=== PATIENT | female | born 1935 | race Caucasian/White ===

== ENCOUNTER 2018-02-06 13:28 | Emergency (ER) | payer MEDICARE, BC ==
[2018-02-06 13:45] VITALS: BP 186/105
--- NOTE | 2018-02-06 14:11 | EDM.PDOC ---
ED HPI GENERAL MEDICAL PROBLEM - General Chief Complaint: Lower Extremity Injury/Pain Stated Complaint: LEFT LEG PAIN Time Seen by Provider: 02/06/18 14:11 Source of Information: Reports: Patient History Limitations: Reports: No Limitations - History of Present Illness INITIAL COMMENTS - FREE TEXT/NARRATIVE: 82-year-old female presents to the ED with 2 family members complaining of pain in her left quadriceps /femur area for the last week or more. Tylenol takes the pain away but she has difficulty walking with her walker due to pain in her quadriceps. She is a new dialysis patient starting the end of November of this year. The make and is receiving Aranesp shots a month once monthly. Receive a unit of blood last week because of a hemoglobin of estimated to be 8.3. She states the pain is deep and aching and worse with standing and walking. No recent falls or injuries. Although she did fall 2 months ago injuring her left knee. Onset: Gradual Onset Date: 01/30/18 Duration: Day(s): (Started to have pain in her left quadriceps about a week ago. ) Location: Reports: Lower Extremity, Left (In the distribution of the quadriceps musculature.) Quality: Reports: Ache, Other Severity: Moderate (Deep aching pain) Improves with: Reports: Rest Worsens with: Reports: Movement Context: Denies: Activity (Standing and walking seem to make it worse.), Exercise, Lifting, Sick Contact, Trauma Associated Symptoms: Reports: Loss of Appetite, Malaise, Shortness of Breath, Weakness. 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: Acetaminophen (Takes most of the pain out of her left leg.) Left Leg Pain Score (Numeric/FACES): 5 - Related Data Allergies Allergy/AdvReac Type Severity Reaction Status Date / Time Iodinated Contrast- Oral and Allergy Other Verified 02/06/18 13:45 IV Dye [Iodinated Contrast Media - IV Dye] Home Meds: Home Meds Ca Carb & Gluc/Mag Ox & Gluc [Calcium Magnesium Caplet] 1 each PO DAILY [History] Calcium Carb/Vit D3/Minerals [Calcium 600+D Plus Min] 600 mg PO BID 06/02/14 [ History] Cyanocobalamin (Vitamin B-12) [Vitamin B-12] 1,000 mcg PO DAILY 06/02/14 [ History] Insulin Aspart [Novolog Flexpen] 3 unit SQ ACLUNCH 06/02/14 [History] Insulin Detemir [Levemir Flexpen] 10 unit SQ QAM 06/02/14 [History] Lutein/Minerals/Vit A,C & E [I-Mari] 1 each PO DAILY 06/02/14 [History] Metoprolol Tartrate 100 mg PO BID 06/02/14 [History] Multivitamins 1 each PO DAILY 06/02/14 [History] Omeprazole [Prilosec] 20 mg PO DAILY 06/02/14 [History] Acetaminophen [Tylenol] 650 mg PO BEDTIME 07/30/14 [History] DULoxetine [Cymbalta] 30 mg PO DAILY 09/10/14 [History] Insulin Aspart [Novolog Flexpen] 4 unit SQ ACBREAKFAST 09/10/14 [History] Nystatin 1 each TOP TID PRN 09/10/14 [History] Insulin Aspart [NovoLOG] See Protocol WITHMEALSANDBED 02/14/15 [History] Insulin Aspart [Novolog Flexpen] 2 unit SQ ACDINNER 02/14/15 [History] Warfarin [Coumadin] 2.5 mg PO ASDIRECTED 03/01/15 [History] Darbepoetin Fam [Aranesp] 1 injection SUBCUT ASDIRECTED 09/09/15 [History] Denosumab [Prolia] 60 mg SUBCUT ASDIRECTED 09/09/15 [History] Levothyroxine [Synthroid] 100 mcg PO DAILY 09/09/15 [History] Loratadine [Claritin] 10 mg PO DAILY 09/09/15 [History] Menthol/Zinc Oxide [Dermaseptin Ointment] 1 applic TOP BID 09/09/15 [History] Metolazone 5 mg PO DAILY PRN 09/09/15 [History] Potassium Chloride [Klor-Con 10] 10 meq PO DAILY 09/09/15 [History] Torsemide [Demadex] 60 mg PO BID 09/09/15 [History] Ondansetron [Zofran] 4 mg IVPUSH Q3HR PRN #0 vial 09/18/15 [Rx] Magnesium Chloride [Slow-Mag] 71.5 mg PO BID #60 tablet. 02/06/18 [Rx] Past Medical History Other Respiratory History: cpap machine @ home Genitourinary History: Reports: Chronic Renal Insuffiency (Currently on dialysis due to renal failure precipitated by contrast media and atherosclerosis and diabetes.), Diabetic Nephropathy Endocrine/Metabolic History: Reports: Diabetes, Type II (On insulin for control. ) - Past Surgical History Other Musculoskeletal Surgeries/Procedures:: Back Social & Family History - Tobacco Use Smoking Status *Q: Never Smoker Second Hand Smoke Exposure: No - Alcohol Use Days Per Week of Alcohol Use: 0 - Recreational Drug Use Recreational Drug Use: No - Living Situation & Occupation Living situation: Reports: , with Family Occupation: Retired Review of Systems - Review of Systems Review Of Systems: See Below Constitutional: Denies: Chills, Diaphoresis, Fever, Weakness, Other Eyes: Reports: Blurred Vision, Decreased Acuity. Denies: No Symptoms, Blindness , Drainage, Foreign Body Sensation Nose: Reports: No Symptoms Mouth/Throat: Reports: No Symptoms Respiratory: Reports: Shortness of Breath Cardiovascular: Denies: No Symptoms, Chest Pain GI/Abdominal: Reports: No Symptoms Genitourinary: Reports: Other (Still makes a half a cup of urine or better daily.) Musculoskeletal: Reports: Back Pain, Joint Pain (Knees and hips and neck at times) Skin: Reports: Bruising (Bruises extremely easily.) Neurological: Reports: No Symptoms Psychiatric: Reports: No Symptoms ED EXAM, GENERAL - Physical Exam Exam: See Below Exam Limited By: No Limitations General Appearance: Alert, WD/WN, No Apparent Distress, Other (Appears quite frail.) Eye Exam: Bilateral Eye: Other (Both lower conjunctiva are very pallid.) Neck: Normal Inspection, Supple, Non-Tender, Full Range of Motion. No: Lymphadenopathy (L), Lymphadenopathy (R) Respiratory/Chest: No Respiratory Distress, Lungs Clear, No Accessory Muscle Use , Respiratory Distress, Decreased Breath Sounds, Other (Decreased breath sounds the lower 40% of lung foster bilaterally. Moderate kyphosis thoracic spine) Cardiovascular: Regular Rate, Rhythm, No Edema, No Gallop. No: Normal Peripheral Pulses Peripheral Pulses: 1+: Posterior Tibial (L), Posterior Tibial (R), Dorsalis Pedis (L), Dorsalis Pedis (R) GI/Abdominal: Normal Bowel Sounds, Soft, Non-Tender, No Organomegaly Back Exam: Other Extremities: Other (Moderate kyphosis thoracic spine examination of her lower extremities show extremely limited range of motion of both hips worse in the right as compared to the left suggesting [id number] osteophyte arthritis of the hips. No pain on deep palpation of the musculature of her upper extremity on the left side. There is evidence of previous hematoma to the left anterior knee from a fall 2 months ago. The knee itself shows moderate degenerative changes. It is not hot or inflamed at this time. SI joint and ischial tuberosity on the left side appeared to be intact and normal.) Psychiatric: Normal Affect, Normal Mood Skin Exam: Warm, Dry, Intact, Normal Color, No Rash Course - Vital Signs Last Recorded V/S: Last Vital Signs Temp 37.3 C 02/06/18 13:41 Pulse 58 L 02/06/18 13:41 Resp 18 02/06/18 13:41 BP 186/105 H 02/06/18 13:41 Pulse Ox 99 02/06/18 13:41 - Orders/Labs/Meds Orders: Active Orders 24 hr Category Date Time Status CALCIUM, IONIZED [REF] Stat Lab 02/06/18 14:41 Received Labs: Laboratory Tests 02/06/18 02/06/18 02/06/18 Range/Units 14:41 14:41 14:41 WBC 7.05 (3.98-10.04) K/mm3 RBC 2.98 L (3.98-5.22) M/mm3 Hgb 9.8 L (11.2-15.7) gm/L Hct 29.8 L (34.1-44.9) % MCV 100.0 H (79.4-94.8) fl MCH 32.9 H (25.6-32.2) pg MCHC 32.9 (32.2-35.5) g/dl RDW Std Deviation 53.7 H (36.4-46.3) fL Plt Count 90 L (182-369) K/mm3 MPV 8.7 L (9.4-12.3) fl Neutrophils % (Manual) 61 H (40-60) % Band Neutrophils % 2 (0-10) % Lymphocytes % (Manual) 21 (20-40) % Atypical Lymphs % 0 % Monocytes % (Manual) 8 (2-10) % Eosinophils % (Manual) 7 H (0.7-5.8) % Basophils % (Manual) 1 (0.1-1.2) Platelet Estimate Decreased Plt Morphology Comment See note Poikilocytosis 1+ slight Anisocytosis 1+ slight Macrocytosis 1+ slight Ovalocytes Few ESR 54 H (0-20) mm/hr PT (8.0-13.0) SECONDS INR Sodium 136 (136-145) mEq/L Potassium 3.7 (3.5-5.1) mEq/L Chloride 99 (98-107) mEq/L Carbon Dioxide 32 (21-32) mEq/L Anion Gap 8.7 (5-15) BUN 14 (7-18) mg/dL Creatinine 1.7 H (0.55-1.02) mg/dL Est Cr Clr Drug Dosing 18.59 mL/min Estimated GFR (MDRD) 29 (>60) mL/min BUN/Creatinine Ratio 8.2 L (14-18) Glucose 171 H (83-115) mg/dL Calcium 7.9 L (8.5-10.1) mg/dL Phosphorus 2.0 L (2.6-4.7) mg/dL Magnesium 1.5 L (1.8-2.4) mg/dl Total Bilirubin 0.3 (0.2-1.0) mg/dL AST 21 (15-37) U/L ALT 16 (14-59) U/L Alkaline Phosphatase 70 (46-116) U/L C-Reactive Protein 1.1 H* (<1.0) mg/dL Total Protein 6.5 (6.4-8.2) g/dl Albumin 2.9 L (3.4-5.0) g/dl Globulin 3.6 gm/dL Albumin/Globulin Ratio 0.8 L (1-2) 02/06/18 Range/Units 14:41 WBC (3.98-10.04) K/mm3 RBC (3.98-5.22) M/mm3 Hgb (11.2-15.7) gm/L Hct (34.1-44.9) % MCV (79.4-94.8) fl MCH (25.6-32.2) pg MCHC (32.2-35.5) g/dl RDW Std Deviation (36.4-46.3) fL Plt Count (182-369) K/mm3 MPV (9.4-12.3) fl Neutrophils % (Manual) (40-60) % Band Neutrophils % (0-10) % Lymphocytes % (Manual) (20-40) % Atypical Lymphs % % Monocytes % (Manual) (2-10) % Eosinophils % (Manual) (0.7-5.8) % Basophils % (Manual) (0.1-1.2) Platelet Estimate Plt Morphology Comment Poikilocytosis Anisocytosis Macrocytosis Ovalocytes ESR (0-20) mm/hr PT 23.2 H (8.0-13.0) SECONDS INR 2.15 Sodium (136-145) mEq/L Potassium (3.5-5.1) mEq/L Chloride (98-107) mEq/L Carbon Dioxide (21-32) mEq/L Anion Gap (5-15) BUN (7-18) mg/dL Creatinine (0.55-1.02) mg/dL Est Cr Clr Drug Dosing mL/min Estimated GFR (MDRD) (>60) mL/min BUN/Creatinine Ratio (14-18) Glucose (83-115) mg/dL Calcium (8.5-10.1) mg/dL Phosphorus (2.6-4.7) mg/dL Magnesium (1.8-2.4) mg/dl Total Bilirubin (0.2-1.0) mg/dL AST (15-37) U/L ALT (14-59) U/L Alkaline Phosphatase (46-116) U/L C-Reactive Protein (<1.0) mg/dL Total Protein (6.4-8.2) g/dl Albumin (3.4-5.0) g/dl Globulin gm/dL Albumin/Globulin Ratio (1-2) - Radiology Interpretation Free Text/Narrative:: 82-year-old female presents to the ED with her family members primarily for assessment of left anterior leg pain in the distribution of the quadriceps. No falls or injuries. It's been hurting for over a week Tylenol takes the pain away. The cause of this pain could be a multitude of problems. He started dialysis. She had hyperparathyroidism may be causiing calcium changes. She clinically has significant osteoarthritis of both hips which may be referred pain into the extremity to the knee. Final abdomen maladies within the quadriceps itself. She is on no medications such as statins to cause a myopathy no recent steroid use. She is anemic with a hemoglobin of 8.3 last week treated with 1 unit of packed cells. Currently receiving dialysis therapy which can cause a mixture of electrolyte abnormalities. Plan x-ray femur x-ray pelvis and both hips. Routine labs to be done as well as serum magnesium and calcium and ionized calcium level. - Re-Assessments/Exams Free Text/Narrative Re-Assessment/Exam: 02/06/18 15:38 x-rays of the pelvis revealed [id number] in both hips I could not necessary state that one was worse than the other although range of motion of her right hip was more diminished on the left side. Therefore there is a good chance a lot of her current pain in her left thigh is referred from the hip. She has evidence of pedicle screws at L34 and 5 levels. 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 X-ray of the left femur reveals a strong posterior arthritis in the hip and medial component of the knee at the bone other than being mildly osteopenic is not revealing any fractures.Labs reveal a total white count of 7.05 hemoglobin is low at 9.8 note this is after 1 unit of packed cells last week when it was 8.3. Hematocrit is 29.8. MCV is 100.0 but a count is 90. She is 61% neutrophils and 2% band cells reported. Sedimentation rate is elevated at 54. Sodium is 136 with a potassium of 3.7 chloride is 99 with carbon dioxide of 32 and a gap is 8.7. BUNs 14 with a creatinine 1.7 after dialysis run today. Glucose is 171 with a calcium of 7.9 phosphorus is 2.0 magnesium is low at 1.5. Bilirubin is 0.3. AST is 21. ALT 16. Alk phosphatase normal at 70. C-reactive protein is 1.1. Albumin fraction slightly low at 2.9.. Lab work doesn't shed any light on any pathology that could be accounting for myopathy in her extremity. Her sedimentation rate is 54. Magnesium may be playing a role and I will therefore put her on Slow-Mag twice daily to bring her magnesium levels. She is already on high-dose calcium supplement. Calcium is slightly low after dialysis run. Departure - Departure Time of Disposition: 15:40 Disposition: Home, Self-Care 01 Condition: Fair Clinical Impression: Pain of left anterior lower extremity, Hypomagnesemia - Discharge Information Prescriptions: Magnesium Chloride [Slow-Mag] 71.5 mg PO BID #60 tablet. Referrals: Geovanni Ochoa MD [Primary Care Provider] - Forms: ED Department Discharge Additional Instructions: Evaluation in the emergency him today in regards to left anterior thigh pain for the last week. No specific injuries or falls to account for this. Clinically the muscles themselves do not appear to be tender to touch. Peers to be deep aching pain. For this reason x-rays of the pelvis and left femur were obtained. They reveal moderate osteophytic changes at the medial aspect of the left knee and severe advanced to have arthritis with [id number] in both hips. Is quite possible that pain in the left leg is referred from the hip. The only other abnormality identified in lab work today was persistent anemia with a hemoglobin of 9.8 today. Magnesium level was found to be low at 1.4. This can sometimes account for muscle weakness and pain. Suggest taking a Slow-Mag supplement 71.4 mg twice daily and a prescription was written for this medication. Continue to take Tylenol as needed for pain relief. See how things go over the next week to 10 days and follow-up with personal physician if pain persists. - My Orders Last 24 Hours: My Active Orders 02/06/18 14:41 CALCIUM, IONIZED [REF] Stat - Assessment/Plan Last 24 Hours: My Active Orders 02/06/18 14:41 CALCIUM, IONIZED [REF] Stat
--- NOTE | 2018-02-06 15:38 | CR ---
Left femur: AP view of the left femur was obtained. Slight chondrocalcinosis is noted within the menisci of the knee with slight medial joint space narrowing. Osteopenia and vascular calcification is noted. Joint space narrowing is seen within the left hip. No acute abnormality is appreciated. Impression: 1. Degenerative change and osteopenia. Vascular calcification. 2. Nothing acute is seen. Diagnostic code #2
--- NOTE | 2018-02-06 15:39 | CR ---
Pelvis: AP view of the pelvis was obtained. Comparison: Previous pelvis exam of 07/30/14. Joint space narrowing is seen within both hips, worse on the left side. Previous lumbar spine surgery is noted. Bony structures are patent. Vascular calcification is noted. Nothing acute is seen. Impression: 1. Incidental findings. Nothing acute is seen. Diagnostic code #2
== END 2018-02-06 15:51 | disposition home or self-care (01) ==
LOC: JD.ED 13:28
DX: M79.605 Pain in left leg (principal); E83.42 Hypomagnesemia; E11.21 Type 2 diabetes mellitus with diabetic nephropathy; N18.9 Chronic kidney disease, unspecified; Z79.4 Long term (current) use of insulin; Z79.899 Other long term (current) drug therapy; Z91.041 Radiographic dye allergy status
CPT/HCPCS: 36415; 72170; 72170-26; 73551-26-LT; 73551-LT; 80053; 82330; 83735; 84100; 85025; 85610; 85652; 86140; 99283; 99284

== ENCOUNTER 2018-02-11 01:18 | Emergency (ER) | payer MEDICARE, BC ==
[2018-02-11 01:26] VITALS: BP 197/67
--- NOTE | 2018-02-11 02:06 | EDM.PDOC ---
ED HPI GENERAL MEDICAL PROBLEM - General Chief Complaint: Respiratory Problem Stated Complaint: [facility] Time Seen by Provider: 02/11/18 01:40 Source of Information: Reports: Patient, EMS, Family, RN Notes Reviewed - History of Present Illness INITIAL COMMENTS - FREE TEXT/NARRATIVE: 82-year-old female comes in after experiencing shortness of breath after being up to the bathroom a short time ago. A son and a daughter here with her state that they have noticed she has had more difficulty breathing the past couple of days with ambulation. She does have history of renal failure and has been on dialysis for about the past 2 months. Because she was getting leg cramps and running low blood pressure it was determined she was running "too dry". family states that her weight has been allowed to go up 6 or 7 pounds. Also she had been on a diuretic, furosemide twice daily and that has been dropped back to just once every other day, the day that she does not get dialysis. Her last dialysis run was 2 days ago with her next dialysis run scheduled for about 5 hours from now. - Related Data Allergies Allergy/AdvReac Type Severity Reaction Status Date / Time Iodinated Contrast- Oral and Allergy Other Verified 02/09/18 13:09 IV Dye [Iodinated Contrast Media - IV Dye] NSAIDS (Non-Steroidal Allergy Other Verified 02/11/18 01:20 Anti-Inflamma Home Meds: Home Meds Calcium Carb/Vit D3/Minerals [Calcium 600+D Plus Min] 600 mg PO BID 06/02/14 [ History] Cyanocobalamin (Vitamin B-12) [Vitamin B-12] 1,000 mcg PO DAILY 06/02/14 [ History] Insulin Detemir [Levemir Flexpen] 10 unit SQ QAM 06/02/14 [History] Metoprolol Tartrate 75 mg PO BID 06/02/14 [History] Multivitamins 1 each PO DAILY 06/02/14 [History] Omeprazole [Prilosec] 20 mg PO BID 06/02/14 [History] Acetaminophen [Tylenol] 650 mg PO Q8HR PRN 07/30/14 [History] Insulin Aspart [NovoLOG] See Protocol WITHMEALSANDBED 02/14/15 [History] Insulin Aspart [Novolog Flexpen] 2 unit SQ ACDINNER 02/14/15 [History] Warfarin [Coumadin] 2.5 mg PO ASDIRECTED 03/01/15 [History] Darbepoetin Fam [Aranesp] 1 injection SUBCUT ASDIRECTED 09/09/15 [History] Denosumab [Prolia] 60 mg SUBCUT ASDIRECTED 09/09/15 [History] Levothyroxine [Synthroid] 100 mcg PO DAILY 09/09/15 [History] Loratadine [Claritin] 10 mg PO DAILY 09/09/15 [History] Menthol/Zinc Oxide [Dermaseptin Ointment] 1 applic TOP BID 09/09/15 [History] Potassium Chloride [Klor-Con 10] 10 meq PO DAILY 09/09/15 [History] Torsemide [Demadex] 50 mg PO DAILY 09/09/15 [History] amLODIPine [Norvasc] 10 mg PO DAILY #30 tab 02/09/18 [Rx] Calcitriol [Rocaltrol] 0.25 mcg PO MOWEFR 02/11/18 [History] Famotidine 20 mg PO DAILY 02/11/18 [History] Ferrous Sulfate 140 mg PO BID 02/11/18 [History] Loperamide [Imodium] 2 mg PO Q6H PRN 02/11/18 [History] Sucralfate [Carafate] 1 gm PO BID 02/11/18 [History] hydrALAZINE [Apresoline] 25 mg PO BID 02/11/18 [History] Past Medical History HEENT History: Reports: Impaired Vision Cardiovascular History: Reports: High Cholesterol, Hypertension Respiratory History: Reports: Sleep Apnea Other Respiratory History: cpap machine @ home Genitourinary History: Reports: Chronic Renal Insuffiency, Diabetic Nephropathy 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: Endocrine/Metabolic History: Reports: Diabetes, Type II - Past Surgical History HEENT Surgical History: Reports: Cataract Surgery Musculoskeletal Surgical History: Reports: Other (See Below) Other Musculoskeletal Surgeries/Procedures:: Back Social & Family History - Family History Family Medical History: Noncontributory - Tobacco Use Smoking Status *Q: Never Smoker Second Hand Smoke Exposure: No - Caffeine Use Caffeine Use: Reports: Coffee - Alcohol Use Days Per Week of Alcohol Use: 0 - Recreational Drug Use Recreational Drug Use: No - Living Situation & Occupation Living situation: Reports: , with Family Occupation: Retired ED ROS GENERAL - Review of Systems Review Of Systems: See Below Constitutional: Denies: Fever, Chills, Diaphoresis HEENT: Denies: Sinus Problem, Throat Pain Respiratory: Reports: Shortness of Breath, Cough (Occasional) Cardiovascular: Denies: Chest Pain GI/Abdominal: Denies: Abdominal Pain, Nausea, Vomiting Musculoskeletal: Denies: Shoulder Pain, Arm Pain Skin: Reports: No Symptoms Neurological: Reports: Dizziness (Mild, intermittent). Denies: Trouble Speaking ED EXAM, GENERAL - Physical Exam Exam: See Below General Appearance: Alert, No Apparent Distress Throat/Mouth: Normal Inspection Head: Atraumatic Neck: Supple, Full Range of Motion Respiratory/Chest: Respiratory Distress (Mild tachypnea), Rales (Mild inspiratory rales bilateral bases). No: Rhonchi, Wheezing Cardiovascular: Regular Rate, Rhythm GI/Abdominal: Soft, Non-Tender. No: Guarding Back Exam: No: CVA Tenderness (L), CVA Tenderness (R) Extremities: Pedal Edema (Trace swelling bilateral lower legs) Neurological: Alert, No Motor/Sensory Deficits Skin Exam: Warm, Dry, Normal Color EKG INTERPRETATION EKG Date: 02/11/18 Rhythm: NSR [place]: Normal P-Wave: Present QRS: Other (She does have borderline Q waves V2 and V3) ST-T: Other (T-wave inversion in lead 3, no ST elevation or depression) Course - Vital Signs Last Recorded V/S: Last Vital Signs Temp 97.5 F 02/11/18 01:21 Pulse 68 02/11/18 01:21 Resp 20 02/11/18 01:21 BP 197/67 H 02/11/18 01:21 Pulse Ox 91 L 02/11/18 01:21 - Orders/Labs/Meds Orders: Active Orders 24 hr Category Date Time Status EKG 12 Lead [EKG Documentation Completion] [RC] STAT Care 02/11/18 01:55 Active Labs: Laboratory Tests 02/11/18 Range/Units 02:05 Troponin I 0.079 H* (0.00-0.056) ng/mL Meds: Medications Discontinued Medications Generic Name Dose Route Start Last Admin Trade Name Freq PRN Reason Stop Dose Admin Furosemide 20 mg 02/11/18 02:50 02/11/18 02:54 Lasix PO 02/11/18 02:51 20 mg ONETIME ONE Administration - Re-Assessments/Exams Free Text/Narrative Re-Assessment/Exam: 02/11/18 02:53 Chest x-ray does show increased pulmonary congestion from just 2 days ago. As noted family states that a cousin prior leg cramps and hypotension her weight has been allowed to go up 6-7 pounds. It appears that this is too much and now she is developing pulmonary congestion interfering with her breathing. I'm going to give her furosemide 20 mg by mouth now. Sats been running about 90-93% on room air while here in the ED. Here in the ED she does continue to deny feeling short of breath at rest. Her dialysis run is in about 4 hours. Therefore we will just hold her here the rest of the night. Our nurses will visit with dialysis nurses and ask that they take off an extra pound or 2 during her run today. Departure - Departure Time of Disposition: 07:17 Disposition: Home, Self-Care 01 Condition: Fair Clinical Impression: Dyspnea Qualifiers: Dyspnea type: dyspnea on exertion Qualified Code(s): R06.09 - Other forms of dyspnea Congestive heart failure Qualifiers: Heart failure type: combined systolic and diastolic Heart failure chronicity: acute on chronic Qualified Code(s): I50.43 - Acute on chronic combined systolic (congestive) and diastolic (congestive) heart failure - Discharge Information Instructions: Heart Failure, [id number] Referrals: Geovanni Ochoa MD [Primary Care Provider] - Forms: ED Department Discharge Additional Instructions: Continue current medications as prescribed. Dialysis this morning as usual. Our nurses will talk to Dialysis, suggest they take off at least a pound or 2 of fluid today to relieve the fluid congestion in your lungs. Follow up with Dr Ochoa as needed, return to ED as needed if symptoms worsening in any way. - My Orders Last 24 Hours: My Active Orders 02/11/18 01:55 EKG 12 Lead [EKG Documentation Completion] [RC] STAT - Assessment/Plan Last 24 Hours: My Active Orders 02/11/18 01:55 EKG 12 Lead [EKG Documentation Completion] [RC] STAT
[2018-02-11] MEDS ORDERED: Furosemide 40 MG Tab PO ONE (02:50)
--- NOTE | 2018-02-11 07:14 | CR ---
Chest: Portable view of the chest was obtained. Comparison: Prior chest x-ray of 02/09/18. Heart is enlarged. Increasing pulmonary vasculature is seen from previous exam. Bony structures remain unchanged. Impression: 1. Increasing pulmonary vasculature from prior chest x-ray. Stable cardiomegaly. Diagnostic code #3
== END 2018-02-11 07:39 | disposition home or self-care (01) ==
LOC: JD.ED 01:18
DX: I50.43 Acute on chronic combined systolic (congestive) and diastolic (congestive) heart failure (principal); E78.00 Pure hypercholesterolemia, unspecified; I10 Essential (primary) hypertension; E11.9 Type 2 diabetes mellitus without complications; Z79.4 Long term (current) use of insulin; Z79.01 Long term (current) use of anticoagulants; Z88.8 Allergy status to other drugs, medicaments and biological substances; Z91.048 Other nonmedicinal substance allergy status; Z79.899 Other long term (current) drug therapy
CPT/HCPCS: 36415; 71045; 84484; 93005; 99285; A9270

== ENCOUNTER 2018-03-13 12:14 | Emergency (ER) | payer MEDICARE, BC ==
[2018-03-13 12:43] VITALS: BP 184/57
--- NOTE | 2018-03-13 13:06 | EDM.PDOC ---
ED HPI GENERAL MEDICAL PROBLEM - General Chief Complaint: Neurological Problem Stated Complaint: SENT BY DIALYSIS Time Seen by Provider: 03/13/18 13:04 Source of Information: Reports: Patient, Family (daughter) History Limitations: Reports: No Limitations - History of Present Illness INITIAL COMMENTS - FREE TEXT/NARRATIVE: 82-year-old female sent up to the ED for evaluation from the dialysis suite. Apparently one half hour into her dialysis run this morning she experienced like activity. Her daughter who always accompanies her to the dialysis suite was with her at the time of this event. In fact she had to call the nurse for assistance. Apparently she suddenly became nonverbal staring off into space and raised her left arm as if she was going to make a left-hand turn. There was some mild jerking movement of her shoulders. Nurses attended immediately and they recorded a blood pressure of 66/36. She was not on a underwriting consultant and therefore one cannot rule out a bradycardia arrhythmia or tachycardia arrhythmia -such as paroxysmal aterial fibrillation as a cause of the low blood pressure and transient loss of consciousness. The nurses laid her flat and she received a 300 mils normal saline fluid bolus which seemed to improve her mentation and cognition within the next few minutes. It therefore appears that she did not have any prolonged postictal phase as one would expect with a true seizure. She has no seizure history. Patient is currently on Coumadin 2.5 mg daily. At present she is alert she is oriented she feels fine. Her pressures are in fact elevated at 186/84. He did come down to 163/82 after being in the bed for 5 minutes. She denies headache nausea or vomiting just that she feels a bit hungry and fatigue which he normally does after having her dialysis run. History suggests that she was recently diagnosed with C. difficile and is on antibiotics for this for the last week. Also medication to slow the rate of bowel frequency. She is gradually improving from this point of view with stools now formed up and down to 2 or 3 bowel movements per day. Appetite remains less than normal due to likely side effects of the antibiotics. No antibiotic is listed on her med list but presumably she is on metronidazole 3 times daily. Onset: Today Onset Date: 03/13/18 Onset Time: 09:00 Duration: Minutes: (We spoke with the dialysis personnel they indicate that her cognitive function seemed to improve within a couple of minutes of laying down likely due to samaritan of her blood pressure. No further seizure activity occurred during her dialysis run and she in fact finished all 4 hours of her dialysis treatment.), Other (Improved. She considers that she is back to normal. ) Location: Reports: Generalized (Transient loss of consciousness improved after lying down flat during her dialysis run. Given 300 mils normal saline fluid bolus with samaritan of her blood pressure.) Quality: Reports: Other (Transient LOC was focal seizure like activity involving the left upper extremity.) Severity: Mild Improves with: Reports: Other Worsens with: Reports: None Context: Reports: Other (Transient loss of conscious with focal like seizure activity during the first half hour dialysis run this morning). Denies: Activity, Exercise, Lifting, Sick Contact Associated Symptoms: Reports: No Other Symptoms. Denies: Confusion, Chest Pain , Cough, cough w sputum, Diaphoresis, Fever/Chills, Headaches, Malaise, Nausea/ Vomiting, Rash, Seizure, Shortness of Breath, Syncope - Related Data Allergies Allergy/AdvReac Type Severity Reaction Status Date / Time Iodinated Contrast- Oral and Allergy Other Verified 02/09/18 13:09 IV Dye [Iodinated Contrast Media - IV Dye] NSAIDS (Non-Steroidal Allergy Other Verified 02/11/18 01:20 Anti-Inflamma Home Meds: Home Meds Calcium Carb/Vit D3/Minerals [Calcium 600+D Plus Min] 600 mg PO BID 06/02/14 [ History] Cyanocobalamin (Vitamin B-12) [Vitamin B-12] 1,000 mcg PO DAILY 06/02/14 [ History] Insulin Detemir [Levemir Flexpen] 10 unit SQ QAM 06/02/14 [History] Metoprolol Tartrate 75 mg PO BID 06/02/14 [History] Multivitamins 1 each PO DAILY 06/02/14 [History] Omeprazole [Prilosec] 20 mg PO BID 06/02/14 [History] Acetaminophen [Tylenol] 650 mg PO Q8HR PRN 07/30/14 [History] Insulin Aspart [NovoLOG] See Protocol WITHMEALSANDBED 02/14/15 [History] Insulin Aspart [Novolog Flexpen] 2 unit SQ ACDINNER 02/14/15 [History] Warfarin [Coumadin] 2.5 mg PO ASDIRECTED 03/01/15 [History] Darbepoetin Fam [Aranesp] 1 injection SUBCUT ASDIRECTED 09/09/15 [History] Denosumab [Prolia] 60 mg SUBCUT ASDIRECTED 09/09/15 [History] Levothyroxine [Synthroid] 100 mcg PO DAILY 09/09/15 [History] Loratadine [Claritin] 10 mg PO DAILY 09/09/15 [History] Menthol/Zinc Oxide [Dermaseptin Ointment] 1 applic TOP BID 09/09/15 [History] Potassium Chloride [Klor-Con 10] 10 meq PO DAILY 09/09/15 [History] Torsemide [Demadex] 50 mg PO DAILY 09/09/15 [History] amLODIPine [Norvasc] 10 mg PO DAILY #30 tab 02/09/18 [Rx] Calcitriol [Rocaltrol] 0.25 mcg PO MOWEFR 02/11/18 [History] Famotidine 20 mg PO DAILY 02/11/18 [History] Ferrous Sulfate 140 mg PO BID 02/11/18 [History] Loperamide [Imodium] 2 mg PO Q6H PRN 02/11/18 [History] Sucralfate [Carafate] 1 gm PO BID 02/11/18 [History] hydrALAZINE [Apresoline] 25 mg PO BID 02/11/18 [History] Past Medical History HEENT History: Reports: Impaired Vision Cardiovascular History: Reports: High Cholesterol, Hypertension Respiratory History: Reports: Sleep Apnea Other Respiratory History: cpap machine @ home Gastrointestinal History: Reports: Other (See Below) (Diagnosed with C. difficile enteritis over a week ago. Has been on antibiotics for one week but starting last Thursday. Has 3 days left to treatment. Presumably this is metronidazole but the daughter is not sure. Daughter did notice some blood and mixed in with the stool yesterday.) Genitourinary History: Reports: Chronic Renal Insuffiency, Dialysis (Started on hemodialysis in November of this year. Makes a fair amount of urine daily she believes around 2 cups. Usually voids 3 or 4 times at least daily.), Diabetic Nephropathy DIE FORGER History: Reports: Endocrine/Metabolic History: Reports: Diabetes, Type II - Past Surgical History HEENT Surgical History: Reports: Cataract Surgery Musculoskeletal Surgical History: Reports: Other (See Below) Other Musculoskeletal Surgeries/Procedures:: Back Social & Family History - Family History Family Medical History: Noncontributory - Tobacco Use Smoking Status *Q: Never Smoker Second Hand Smoke Exposure: No - Caffeine Use Caffeine Use: Reports: Coffee Other Caffeine Use: decaff coffee and diet dew - Alcohol Use Days Per Week of Alcohol Use: 0 - Recreational Drug Use Recreational Drug Use: No - Living Situation & Occupation Living situation: Reports: , with Family Occupation: Retired ED ROS GENERAL - Review of Systems Review Of Systems: See Below Constitutional: Reports: Malaise, Weakness, Fatigue. Denies: Fever, Chills, Decreased Appetite, Weight Loss HEENT: Reports: Glasses, Hearing Loss (Mildly hard of hearing.) Respiratory: Reports: Shortness of Breath. Denies: Cough (Chronically on exertion.), Sputum Cardiovascular: Reports: Blood Pressure Problem (Chronically elevated.), Dyspnea on Exertion, Other (History of intermittent or paroxysmal atrial fibrillation. Currently in sinus rhythm.). Denies: Chest Pain Endocrine: Reports: Fatigue GI/Abdominal: Reports: Diarrhea (Just getting over a bout of C. difficile- induced enteritis. Has been on medication for this 1 week. Stools are now formed up and down to 2 or 3 per day.), Hematochezia (Daughter reports she noticed some blood mixed with the stool yesterday.). Denies: Abdominal Pain, Decreased Appetite, Distension, Hematemesis : Reports: Other (She's been on hemodialysis for 4 months now. Resume diagnosis diabetic nephropathy. He'll makes about 2 cups of urine daily.) Musculoskeletal: Reports: Back Pain (Does not make any urine anymore.), Joint Pain (Sometimes knees hips and neck hurt.) Skin: Reports: Pallor (Chronic anemia.), Bruising (As is easily because she is on Coumadin.) Neurological: Reports: Syncope (Syncopal event this morning versus seizure. I believe that she suffered a syncopal event due to transient low blood pressure.) . Denies: Confusion, Dizziness, Headache, Numbness, Tingling, Tremors, Trouble Speaking, Difficulty Walking, Weakness, Change in Speech, Gait Disturbance Psychiatric: Reports: No Symptoms Hematologic/Lymphatic: Reports: Anemia, Easy Bruising (Chronically anemic) Immunologic: Reports: No Symptoms - Physical Exam Exam: See Below Exam Limited By: No Limitations General Appearance: Alert, WD/WN, No Apparent Distress, Other (She answers all questions appropriately makes good eye contact. She is fairly pallid however.) Eye Exam: Bilateral Eye: Normal Inspection (Has pallor of her peripheral conjunctiva.) Head Exam: Atraumatic, Normocephalic Neck: Normal Inspection, Limited Range of Motion, Tender Lateral (Some crepitus on movement of her neck. Her cervical spine bilaterally.), Other. No: Non- Tender, Full Range of Motion, Lymphadenopathy (L), Lymphadenopathy (R) Respiratory/Chest: No Respiratory Distress, Respiratory Distress, Rales (Mild tachypnea at rest with O2 sats of 97%. Fine rales appreciated both lower lobes.) Cardiovascular: Regular Rate, Rhythm, No Edema, No Gallop, Systolic Murmur ( Grade 3/6 pansystolic ejection murmur heard best at the left lateral sternal border. Murmur radiates across the chest and up into the right carotid artery.) . No: Normal Peripheral Pulses, JVD, Gallop/S3, Gallop/S4 GI/Abdominal: Normal Bowel Sounds, Soft, Non-Tender, No Organomegaly Neuro Exam (Abbreviated): Alert, Oriented, CN II-XII Intact, Normal Cognition, No Motor/Sensory Deficits Back Exam: Decreased Range of Motion (Mild kyphosis thoracic spine.), Other Extremities: Other (Her AV shunt is in her left distal arm. Palpable thrill. No active bleeding from recent dialysis. Changes in her knees compatible with osteophytic changes.) Psychiatric: Normal Affect ( No dependent edema.), Normal Mood Skin Exam: Warm, Dry, Pallor (Mild to moderate pallor.) EKG INTERPRETATION EKG Date: 03/13/18 Time: 13:17 Rhythm: NSR Rate (Beats/Min): 71 [place]: LAD-Left [place] Deviation (Mild left axis deviation of -18) P-Wave: Present (With first-degree AV block) QRS: Other (There is near Q-wave V1 and V2 with poor initial R-wave progression suggestive of an old anteroseptal myocardial infarction. There is decreased voltage in both limb and precordial leads. Borderline criteria for left ventricular hypertrophy pattern.) ST-T: Normal QT: Prolonged (Mild sleep prolonged at 468.) Course - Vital Signs Last Recorded V/S: Last Vital Signs Temp 36.8 C 03/13/18 12:41 Pulse 70 03/13/18 12:41 Resp 20 03/13/18 12:41 BP 184/57 H 03/13/18 12:41 Pulse Ox 97 03/13/18 12:41 - Orders/Labs/Meds Orders: Active Orders 24 hr Category Date Time Status EKG Documentation Completion [RC] STAT Care 03/13/18 13:05 Active Head wo Cont [CT] Stat Exams 03/13/18 13:04 Taken TROPONIN I [CHEM] Stat Lab 03/13/18 14:27 Ordered Labs: Laboratory Tests 03/13/18 03/13/18 03/13/18 Range/Units 13:29 13:29 13:29 WBC 13.86 H (3.98-10.04) K/mm3 RBC 2.98 L (3.98-5.22) M/mm3 Hgb 9.7 L (11.2-15.7) gm/L Hct 30.0 L (34.1-44.9) % MCV 100.7 H (79.4-94.8) fl MCH 32.6 H (25.6-32.2) pg MCHC 32.3 (32.2-35.5) g/dl RDW Std Deviation 51.2 H (36.4-46.3) fL Plt Count 87 L (182-369) K/mm3 MPV 8.1 L (9.4-12.3) fl Neutrophils % (Manual) 73 H (40-60) % Band Neutrophils % 0 (0-10) % Lymphocytes % (Manual) 15 L (20-40) % Atypical Lymphs % 0 % Monocytes % (Manual) 9 (2-10) % Eosinophils % (Manual) 2 (0.7-5.8) % Basophils % (Manual) 1 (0.1-1.2) Platelet Estimate Decreased Poikilocytosis 1+ slight Anisocytosis 1+ slight Macrocytosis 1+ slight RBC Morph Comment Not Reportable PT 33.8 H (9.5-12.1) SECONDS INR 3.17 Sodium 140 (136-145) mEq/L Potassium 3.7 (3.5-5.1) mEq/L Chloride 102 (98-107) mEq/L Carbon Dioxide 31 (21-32) mEq/L Anion Gap 10.7 (5-15) BUN 13 (7-18) mg/dL Creatinine 1.8 H (0.55-1.02) mg/dL Est Cr Clr Drug Dosing 17.56 mL/min Estimated GFR (MDRD) 27 (>60) mL/min BUN/Creatinine Ratio 7.2 L (14-18) Glucose 160 H (83-115) mg/dL Calcium 7.9 L (8.5-10.1) mg/dL Total Bilirubin 0.3 (0.2-1.0) mg/dL AST 10 L (15-37) U/L ALT 6 L (14-59) U/L Alkaline Phosphatase 72 (46-116) U/L Total Protein 6.4 (6.4-8.2) g/dl Albumin 2.9 L (3.4-5.0) g/dl Globulin 3.5 gm/dL Albumin/Globulin Ratio 0.8 L (1-2) - Radiology Interpretation Free Text/Narrative:: 82-year-old female presented to the ED after completing 4 hours of her dialysis run. The history is that she developed transient loss of consciousness with seizure-like activity about a half hour into her dialysis run. Her daughter reports was with her at the time that she suddenly became unresponsive staring off into space and raised her left arm in a fashion that she was going to turn left. She then experienced some mild jerking. Daughter went to summon the nursing staff and quickly lied her down and identified her blood pressure was low at 66 130s 6. She has not hooked up to a underwriting consultant during this event and it's unclear whether she had any arrhythmia or bradycardia arrhythmia. Artery to go therapist occupational was notified and he ordered a 300 mils normal saline bolus which seemed to improve her cognitive function within the next 2-3 minutes. There was no evidence of a prolonged postictal period as one might anticipate if she had a true seizure. It appears that she suffered transient loss of conscious secondary to transient low blood pressure. No S3 why this occurred is unclear. Clinically she has significant aortic stenosis. Subvolume changes acutely could've lowered her blood pressure enough to make her unresponsive. Unclear if she had any arrhythmia to contribute to this. Plan CT head will be done since she is on Coumadin. She does not have a headache and neuro exam is grossly normal at this time. Routine labs to be collected for electrolyte abdomen maladies although they should've been corrected by the dialysis run. PT/INR will also be checked. - Re-Assessments/Exams Free Text/Narrative Re-Assessment/Exam: 03/13/18: 13:35: CT scan of the brain reveals no intracranial bleeding or mass effect. Extensive white matter hypoattenuation is suggestive of chronic small vessel ischemic changes is evident. There is generalized hardening of the arteries or calcification of the carotid arteries. There is also appreciable atherosclerotic calcination of the vertebral arteries bilaterally. 03/13/18 14:27 Labs reveal a slightly elevated white blood cell count at 13.86. Differential reveals 73% neutrophils and no bands. Hemoglobin is low at 9.7 with hematocrit of 30. MCV is elevated at 100.7 due to renal failure. PT is 33.8 with an INR of 3.17 which is mildly supratherapeutic. Sodium was 140 with potassium of 3.7. Chloride 102 with a bicarbonate 31. Anion gap is 10.7 BUN is 13 with a creatinine of 1.8.. Glucose is 160. Calcium slightly low at 7.9 postdialysis. Liver function normal. Troponin is not yet reported. Continues to feel perfectly fine. Apparently this is happened a couple of occasions where she has dropped her blood pressure after onset of dialysis run. I'm wondering if this a dramatic fluid change with the onset of dialysis combined with her aortic stenosis that would cause a hypotensive event. Her Coumadin will be placed on hold for the next 2 days as it is supratherapeutic at 3.17. This is likely due to use of metronidazole for C. difficile enteritis at present. Daughter had noticed some blood in her stool yesterday it can be restarted on Thursday evening. Suggest repeat PT/INR on next week. Departure - Departure Time of Disposition: 14:35 Disposition: Home, Self-Care 01 Condition: Fair Clinical Impression: Orthostatic hypotension, Supratherapeutic international normalized ratio (INR) , Hematochezia, C. difficile enteritis Renal failure Qualifiers: Renal failure chronicity: chronic Chronic kidney disease stage: on chronic dialysis Qualified Code(s): N18.6 - End stage renal disease; Z99.2 - Dependence on renal dialysis Anemia Qualifiers: Anemia type: due to chronic kidney disease Chronic kidney disease stage: on chronic dialysis Qualified Code(s): N18.6 - End stage renal disease; D63.1 - Anemia in chronic kidney disease; Z99.2 - Dependence on renal dialysis - Discharge Information Referrals: Geovanni Ochoa MD [Primary Care Provider] - Forms: ED Department Discharge Additional Instructions: Evaluation the emergency room today after completing 4 hour dialysis run. History of transient severe drop in blood pressure currently about a half hour into today's dialysis run. Reported blood pressure at the time you went unresponsive was 66/36. The exact cause for this is unclear. Possible due to rapid fluid shifts combined with aortic stenosis that your blood pressure dropped suddenly. Such as paroxysmal atrial fibrillation or low heart rate transiently could've precipitated a transient loss of blood pressure. At any rate she improved with 300 mils of normal saline given intravenously. Seizure- like activity was appreciated by her daughter when you're staring off into space and suddenly raised her left arm at the onset of this event. Appears to of occurred due to decreased blood supply to the brain due to decreased blood pressure. There is no evidence that she suffered a true seizure. Seizure-like recurrences occult reemergence phenomenon as the blood is restored to the brain or the brain experiences a sudden decrease in blood supply. This is what I believe occurred today. The only abdomen identified in your lab work today was an elevated INR at 3.17. This is secondary to the medication you're currently using for C. difficile treatment. This is too high and make him more prone to bleeding. Therefore suggest no Coumadin today or tomorrow but resume again on Thursday as per your usual. Rate was normal sinus rhythm today. ET scan of the brain revealed no evidence of intracranial bleeding or abnormalities other than age-appropriate changes. Coumadin check up her PT/INR blood test needs to be done about next week. This could be done either while in the dialysis suite or at the clinic. May eat and drink and continue normal activity. Continue all other medications as before. - My Orders Last 24 Hours: My Active Orders 03/13/18 13:04 Head wo Cont [CT] Stat 03/13/18 13:05 EKG Documentation Completion [RC] STAT 03/13/18 14:27 TROPONIN I [CHEM] Stat - Assessment/Plan Last 24 Hours: My Active Orders 03/13/18 13:04 Head wo Cont [CT] Stat 03/13/18 13:05 EKG Documentation Completion [RC] STAT 03/13/18 14:27 TROPONIN I [CHEM] Stat
--- NOTE | 2018-03-14 14:26 | CT ---
Head CT Technique: Multiple axial sections through the brain were obtained. Intravenous contrast was not utilized. Comparison: Prior head CT exam of 09/17/15. Findings: Ventricles along with basal cisterns and sulci over the convexities are moderately prominent. Diffuse diminished density is noted within the basal ganglia, periventricular and subcortical white matter which is compatible with small vessel ischemic demyelination change. Several old appearing lacunar infarcts are also noted within the basal ganglia. No other abnormal parenchymal densities are seen. No evidence of intracranial hemorrhage. No midline shift or mass effect is seen. Bone window settings were reviewed which show no acute calvarial abnormality. Slight mucosal thickening is noted within the right maxillary and left frontal sinus which is felt to be incidental. Atherosclerotic calcification is noted within the carotid siphon and within the vertebral vessels. Impression: 1. Senescent change as described above. Other incidental findings. 2. No acute intracranial abnormality is appreciated. Diagnostic code #2 I agree with preliminary report issued by [employer] ([employer] preliminary report dictated on 03/13/18, 2:47 PM Central Time)
== END 2018-03-13 15:15 | disposition home or self-care (01) ==
LOC: SUPCPDRO 12:14 → JD.ED 12:14
DX: I95.1 Orthostatic hypotension (principal); K92.1 Melena; A04.72 Enterocolitis due to Clostridium difficile, not specified as recurrent; I12.9 Hypertensive chronic kidney disease with stage 1 through stage 4 chronic kidney disease, or unspecified chronic kidney disease; E11.21 Type 2 diabetes mellitus with diabetic nephropathy; E11.22 Type 2 diabetes mellitus with diabetic chronic kidney disease; N18.6 End stage renal disease; D63.1 Anemia in chronic kidney disease; E78.00 Pure hypercholesterolemia, unspecified; R79.1 Abnormal coagulation profile; Z99.2 Dependence on renal dialysis; Z79.4 Long term (current) use of insulin; Z79.899 Other long term (current) drug therapy; Z91.041 Radiographic dye allergy status
CPT/HCPCS: 36415; 70450; 70450-26; 80053; 84484; 85025; 85610; 93005; 93010; 99284-25; 99285-25

== ENCOUNTER 2018-05-14 02:06 | Emergency (ER) | payer MEDICARE, BC ==
[2018-05-14] MEDS ORDERED: Labetalol 100 MG/20 ML MDV ONE (02:14)
[2018-05-14] MEDS ORDERED: Sodium Chloride 0.9% 10 ML Syringe FLUSH PRN (02:17)
[2018-05-14] MEDS ORDERED: Etomidate 2 MG/ML 20 ML SDV IVPUSH ONE (02:19)
[2018-05-14] MEDS ORDERED: Succinylcholine 200 MG/10 ML MDV IV ONE (02:19)
[2018-05-14] MEDS ORDERED: Labetalol 100 MG/20 ML MDV IVPUSH ONE ×2 (02:19→03:32)
[2018-05-14] MEDS ORDERED: Phytonadione 10 MG in Sodium Chloride 0.9% 50 ML IV ONE (02:36)
--- NOTE | 2018-05-14 02:49 | EDM.PDOC ---
ED HPI GENERAL MEDICAL PROBLEM - General Chief Complaint: Neurological Problem Stated Complaint: [facility] Time Seen by Provider: 05/14/18 02:17 Source of Information: Reports: EMS, Family History Limitations: Reports: Altered Mental Status - History of Present Illness INITIAL COMMENTS - FREE TEXT/NARRATIVE: The patient presents [facility] for respiratory difficulties and being unresponsive. Her last time know well was 8:30pm last night when she went to bed. Her family noticed some gurgling respirations when they walked by her room. They called EMS and they were updated that she was not responding. Her son says she is in renal failure and on dialysis. Her blood pressures have been elevated. Her doctors have been making some changes to her meds to get her blood pressure down. When EMS arrived they found the patient in respiratory distress with low oxygen saturations in the upper 80s. They put her on a simple mask and that brought her oxygen saturations up. She vomited a few times. She appeared to move bother her arms and legs but she was not responding to verbal stimuli. Onset: Sudden Duration: Hour(s): Severity: Severe Improves with: Reports: None Worsens with: Reports: None Associated Symptoms: Reports: Nausea/Vomiting, Shortness of Breath Treatments FOLLOW UP SPECIALIST: Reports: EKG, Oxygen - Related Data Allergies Allergy/AdvReac Type Severity Reaction Status Date / Time Iodinated Contrast- Oral and Allergy Other Verified 05/14/18 02:30 IV Dye [Iodinated Contrast Media - IV Dye] NSAIDS (Non-Steroidal Allergy Other Verified 05/14/18 02:30 Anti-Inflamma Home Meds: Home Meds Calcium Carb/Vit D3/Minerals [Calcium 600+D Plus Min] 600 mg PO BID 06/02/14 [ History] Cyanocobalamin (Vitamin B-12) [Vitamin B-12] 1,000 mcg PO DAILY 06/02/14 [ History] Insulin Detemir [Levemir Flexpen] 10 unit SQ QAM 06/02/14 [History] Metoprolol Tartrate 75 mg PO BID 06/02/14 [History] Multivitamins 1 each PO DAILY 06/02/14 [History] Omeprazole [Prilosec] 20 mg PO BID 06/02/14 [History] Acetaminophen [Tylenol] 650 mg PO Q8HR PRN 07/30/14 [History] Insulin Aspart [NovoLOG] See Protocol WITHMEALSANDBED 04/01/15 [History] Insulin Aspart [Novolog Flexpen] 2 unit SQ ACDINNER 02/14/15 [History] Warfarin [Coumadin] 2.5 mg PO ASDIRECTED 03/01/15 [History] Darbepoetin Fam [Aranesp] 1 injection SUBCUT ASDIRECTED 09/09/15 [History] Denosumab [Prolia] 60 mg SUBCUT ASDIRECTED 09/09/15 [History] Levothyroxine [Synthroid] 100 mcg PO DAILY 09/09/15 [History] Loratadine [Claritin] 10 mg PO DAILY 09/09/15 [History] Menthol/Zinc Oxide [Dermaseptin Ointment] 1 applic TOP BID 09/09/15 [History] Potassium Chloride [Klor-Con 10] 10 meq PO DAILY 09/09/15 [History] Torsemide [Demadex] 50 mg PO DAILY 09/09/15 [History] amLODIPine [Norvasc] 10 mg PO DAILY #30 tab 02/09/18 [Rx] Calcitriol [Rocaltrol] 0.25 mcg PO MOWEFR 02/11/18 [History] Famotidine 20 mg PO DAILY 02/11/18 [History] Ferrous Sulfate 140 mg PO BID 02/11/18 [History] Loperamide [Imodium] 2 mg PO Q6H PRN 02/11/18 [History] Sucralfate [Carafate] 1 gm PO BID 02/11/18 [History] hydrALAZINE [Apresoline] 25 mg PO BID 02/11/18 [History] Past Medical History HEENT History: Reports: Impaired Vision Cardiovascular History: Reports: High Cholesterol, Hypertension Respiratory History: Reports: Sleep Apnea Other Respiratory History: cpap machine @ home Gastrointestinal History: Reports: Other (See Below) Genitourinary History: Reports: Chronic Renal Insuffiency, Dialysis, Diabetic Nephropathy TRAFFIC AGENT History: Reports: Endocrine/Metabolic History: Reports: Diabetes, Type II - Past Surgical History HEENT Surgical History: Reports: Cataract Surgery Musculoskeletal Surgical History: Reports: Other (See Below) Other Musculoskeletal Surgeries/Procedures:: Back Social & Family History - Family History Family Medical History: Noncontributory - Tobacco Use Smoking Status *Q: Unknown Ever Smoked - Caffeine Use Caffeine Use: Reports: Coffee Other Caffeine Use: decaff coffee and diet dew - Recreational Drug Use Recreational Drug Use: No - Living Situation & Occupation Living situation: Reports: , with Family Occupation: Retired ED ROS GENERAL - Review of Systems Review Of Systems: Unable To Obtain - Physical Exam Exam: See Below Exam Limited By: Altered Mental Status General Appearance: Obtunded Eye Exam: Bilateral Eye: PERRL Ears: Normal External Exam Nose: Normal Inspection Throat/Mouth: Normal Inspection Head Exam: Atraumatic, Normocephalic Neck: Normal Inspection, Supple, Non-Tender Respiratory/Chest: No Respiratory Distress, Decreased Breath Sounds, Rhonchi Cardiovascular: Regular Rate, Rhythm, No Edema, No Murmur GI/Abdominal: Soft, Non-Tender, No Organomegaly, No Mass Neuro Exam (Abbreviated): Unresponsive, Other (It appears she moves all 4 extremities and she withdraws to pain) Extremities: Normal Inspection Endotracheal Intubation - Endotracheal Intubation ET Intubation Indication: Airway Protection Preparation: Suction, Balloon Tested, BVM Set Up, Difficult Airway Equip Pre-Oxygenation: 100% FiO2 Anesthesia Meds: Ketamine, Succinylcholine Placement: Orotracheal, Cuffed, Uncomplicated Placement Cords Visualized: Yes ETT Size In mm: 7.5 Number of Attempts: 1 Confirmed By: CO2 Indicator, Bilateral Breath Sounds, Chest Xray Tube Secured By: By RT EKG INTERPRETATION EKG Date: 05/14/18 Time: 02:34 Rhythm: NSR Rate (Beats/Min): 72 Sylvia: Normal P-Wave: Present QRS: Normal ST-T: Normal QT: Normal MO/PQ Interval: 1st degree HB Course - Vital Signs Last Recorded V/S: Last Vital Signs Temp 97.8 F 05/14/18 03:11 Pulse 72 05/14/18 03:11 Resp 19 05/14/18 03:11 BP 158/47 H 05/14/18 03:11 Pulse Ox 100 05/14/18 03:05 - Orders/Labs/Meds Orders: Active Orders 24 hr Category Date Time Status Cardiac Monitoring [RC] . DIRECTED Care 05/14/18 02:17 Active EKG Documentation Completion [RC] STAT Care 05/14/18 02:18 Active Suh Catheter Insertion [Insert Urinary Catheter] [OM. Care 05/14/18 02:30 Ordered PC] Q24H Peripheral IV Care [RC] . DIRECTED Care 05/14/18 02:18 Active Chest 1V Frontal [CR] Stat Exams 05/14/18 02:18 Taken Head wo Cont [CT] Stat Exams 05/14/18 02:22 Taken UA W/MICROSCOPIC [URIN] Stat Lab 05/14/18 02:38 Ordered Propofol [Diprivan 100 ML] 100 ml Med 05/14/18 02:30 Active IV TITRATE Rocuronium [Zemuron] Med 05/14/18 03:27 Once 65 mg IVPUSH ONETIME ONE Sodium Chloride 0.9% [Saline Flush] Med 05/14/18 02:17 Active 10 ml FLUSH ASDIRECTED PRN Desired Level of Sedation (RASS) [AST] Click To Edit Oth 05/14/18 02:21 Ordered Peripheral IV Insertion Adult [OM.PC] Stat Oth 05/14/18 02:17 Ordered Transfuse Fresh Frozen Plasma [COMM] Stat Oth 05/14/18 02:36 Ordered Medication Orders Propofol (Diprivan 100 Ml) 100 mls @ 19.731 mls/hr IV TITRATE LC; Protocol Last Titration: 05/14/18 02:50 Dose: 60 mcg/kg/min, 23.678 mls/hr Admin: 05/14/18 02:45 Dose: 50 mcg/kg/min, 19.731 mls/hr Rocuronium Noonan (Zemuron) 65 mg IVPUSH ONETIME ONE Stop: 05/14/18 03:28 Sodium Chloride (Saline Flush) 10 ml FLUSH ASDIRECTED PRN PRN Reason: Keep Vein Open Last Admin: 05/14/18 02:43 Dose: 10 ml Labs: Laboratory Tests 05/14/18 05/14/18 05/14/18 Range/Units 02:15 02:15 02:15 WBC 17.66 H (3.98-10.04) K/mm3 RBC 3.19 L (3.98-5.22) M/mm3 Hgb 10.3 L (11.2-15.7) gm/L Hct 32.0 L (34.1-44.9) % MCV 100.3 H (79.4-94.8) fl MCH 32.3 H (25.6-32.2) pg MCHC 32.2 (32.2-35.5) g/dl RDW Std Deviation 53.3 H (36.4-46.3) fL Plt Count 230 (182-369) K/mm3 MPV 9.0 L (9.4-12.3) fl Neut % (Auto) 60.6 (34.0-71.1) % Lymph % (Auto) 19.3 (19.3-51.7) % Perkins % (Auto) 11.2 (4.7-12.5) % Eos % (Auto) 8.1 H (0.7-5.8) Baso % (Auto) 0.5 (0.1-1.2) % Neut # (Auto) 10.71 H (1.56-6.13) K/mm3 Lymph # (Auto) 3.41 (1.18-3.74) K/mm3 Perkins # (Auto) 1.97 H (0.24-0.36) K/mm3 Eos # (Auto) 1.43 H (0.04-0.36) K/mm3 Baso # (Auto) 0.09 H (0.01-0.08) K/mm3 Manual Slide Review Normal smear PT 25.6 H (9.5-12.1) SECONDS INR 2.39 APTT 39 H (24-31) SECONDS Sodium 137 (136-145) mEq/L Potassium 4.5 (3.5-5.1) mEq/L Chloride 99 (98-107) mEq/L Carbon Dioxide 32 (21-32) mEq/L Anion Gap 10.5 (5-15) BUN 33 H (7-18) mg/dL Creatinine 2.3 H (0.55-1.02) mg/dL Est Cr Clr Drug Dosing 15.44 mL/min Estimated GFR (MDRD) 20 (>60) mL/min BUN/Creatinine Ratio 14.3 (14-18) Glucose 245 H (83-115) mg/dL Calcium 8.6 (8.5-10.1) mg/dL Total Bilirubin 0.4 (0.2-1.0) mg/dL AST 26 (15-37) U/L ALT 16 (14-59) U/L Alkaline Phosphatase 89 (46-116) U/L Troponin I 0.046 (0.00-0.056) ng/mL Total Protein 6.8 (6.4-8.2) g/dl Albumin 3.0 L (3.4-5.0) g/dl Globulin 3.8 gm/dL Albumin/Globulin Ratio 0.8 L (1-2) Urine Color (Yellow) Urine Appearance (Clear) Urine pH (5.0-8.0) Ur Specific [place] (1.005-1.030) Urine Protein (Negative) Urine Glucose (UA) (Negative) Urine Ketones (Negative) Urine Occult Blood (Negative) Urine Nitrite (Negative) Urine Bilirubin (Negative) Urine Urobilinogen (0.2-1.0) Ur Leukocyte Esterase (Negative) Ethyl Alcohol 0.00 (0.00) gm% Blood Type 05/14/18 05/14/18 Range/Units 02:15 02:38 WBC (3.98-10.04) K/mm3 RBC (3.98-5.22) M/mm3 Hgb (11.2-15.7) gm/L Hct (34.1-44.9) % MCV (79.4-94.8) fl MCH (25.6-32.2) pg MCHC (32.2-35.5) g/dl RDW Std Deviation (36.4-46.3) fL Plt Count (182-369) K/mm3 MPV (9.4-12.3) fl Neut % (Auto) (34.0-71.1) % Lymph % (Auto) (19.3-51.7) % Perkins % (Auto) (4.7-12.5) % Eos % (Auto) (0.7-5.8) Baso % (Auto) (0.1-1.2) % Neut # (Auto) (1.56-6.13) K/mm3 Lymph # (Auto) (1.18-3.74) K/mm3 Perkins # (Auto) (0.24-0.36) K/mm3 Eos # (Auto) (0.04-0.36) K/mm3 Baso # (Auto) (0.01-0.08) K/mm3 Manual Slide Review PT (9.5-12.1) SECONDS INR APTT (24-31) SECONDS Sodium (136-145) mEq/L Potassium (3.5-5.1) mEq/L Chloride (98-107) mEq/L Carbon Dioxide (21-32) mEq/L Anion Gap (5-15) BUN (7-18) mg/dL Creatinine (0.55-1.02) mg/dL Est Cr Clr Drug Dosing mL/min Estimated GFR (MDRD) (>60) mL/min BUN/Creatinine Ratio (14-18) Glucose (83-115) mg/dL Calcium (8.5-10.1) mg/dL Total Bilirubin (0.2-1.0) mg/dL AST (15-37) U/L ALT (14-59) U/L Alkaline Phosphatase (46-116) U/L Troponin I (0.00-0.056) ng/mL Total Protein (6.4-8.2) g/dl Albumin (3.4-5.0) g/dl Globulin gm/dL Albumin/Globulin Ratio (1-2) Urine Color Yellow (Yellow) Urine Appearance Clear (Clear) Urine pH 8.5 H (5.0-8.0) Ur Specific [place] 1.020 (1.005-1.030) Urine Protein 3+ H (Negative) Urine Glucose (UA) Trace H (Negative) Urine Ketones Negative (Negative) Urine Occult Blood Trace-intact H (Negative) Urine Nitrite Negative (Negative) Urine Bilirubin Negative (Negative) Urine Urobilinogen 0.2 (0.2-1.0) Ur Leukocyte Esterase Negative (Negative) Ethyl Alcohol (0.00) gm% Blood Type A POSITIVE Meds: Medications Generic Name Dose Route Start Last Admin Trade Name Freq PRN Reason Stop Dose Admin Propofol 100 mls @ 19.731 mls/hr 05/14/18 02:30 05/14/18 02:50 Diprivan 100 Ml IV 60 mcg/kg/min TITRATE LC 23.678 mls/hr Titration Protocol 50 MCG/KG/MIN Rocuronium Noonan 65 mg 05/14/18 03:27 Zemuron IVPUSH 05/14/18 03:28 ONETIME ONE Sodium Chloride 10 ml 05/14/18 02:17 05/14/18 02:43 Saline Flush FLUSH 10 ml ASDIRECTED PRN Administration Keep Vein Open Discontinued Medications Generic Name Dose Route Start Last Admin Trade Name Freq PRN Reason Stop Dose Admin Etomidate 20 mg 05/14/18 02:19 05/14/18 02:40 Amidate IVPUSH 05/14/18 02:20 20 mg ONETIME ONE Administration Propofol Confirm 05/14/18 02:14 05/14/18 02:40 Diprivan 100 Ml Administered 05/14/18 02:15 Not Given Dose 100 mls @ as directed .ROUTE .STK-MED ONE Phytonadione 10 mg/ Sodium 51 mls @ 100 mls/hr 05/14/18 02:36 05/14/18 02:48 Chloride IV 05/14/18 03:06 100 mls/hr NOW ONE Administration Labetalol HCl Confirm 05/14/18 02:14 05/14/18 02:41 Normodyne Administered 05/14/18 02:15 Not Given Dose 100 mg .ROUTE .STK-MED ONE Labetalol HCl 20 mg 05/14/18 02:19 05/14/18 02:44 Normodyne IVPUSH 05/14/18 02:20 20 mg ONETIME ONE Administration Protocol Succinylcholine Chloride 100 mg 05/14/18 02:19 05/14/18 02:39 Quelicin IV 05/14/18 02:20 100 mg ONETIME ONE Administration - Re-Assessments/Exams Free Text/Narrative Re-Assessment/Exam: 05/14/18 03:05 The patient would withdraw from pain. It appears she moved all 4 extremities. I ordered an IV saline lock, etomidate 20mg IV, succinylcoline. I then intubated the patient using a 7.5 tube. ET placement was confirmed. I ordered a propofol drip for sedation. I also ordered labetolol 20mg IV. Her BP was in the 230s. Her CT shows acute intraparencymal hemorrhage centered within the right frontal lobe that may also be involving the right basal ganglia and thalamus measuring 8.3 X 5.7cm with extension into the ventricular system. 2.2cm of leftward midline shift and compression of both lateral ventricles resulting in acute hydrocephalus. Downward herniation. I called [facility] in [place] and talked with Dr Sheffield the ER doctor. We discussed how the patient has a poor prognosis but he did accept the patient. I tallked to the patient's family and described how sick their mother was and that she has a very poor prognosis and she may from this. 05/14/18 03:11 Her WBC was elevated at 17.66. Her Hgb was low at 10.3. Her platelets were normal at 230. Her INR was therapeutic at 2.39. I have ordered vitamin K 10mg IV and FFP 1 unit. I checked to see if we have [employer] yet and we do not. Her creatinine was 2.3. Her glucose was 245. Her troponin was negative. There is bad weather in the area neither [facility] nor [employer] could fly. She will need to go by ground. 05/14/18 03:28 Critical care time is 80 minutes. Departure - Departure Time of Disposition: 03:15 Disposition: DC/Tfer to Acute Hospital 02 Condition: Critical Clinical Impression: Intraparenchymal hemorrhage of brain, Chronic kidney disease with end stage renal failure on dialysis, Hypoxemia, On Coumadin for atrial fibrillation Respiratory failure Qualifiers: Chronicity: acute Respiratory failure complication: hypoxia Qualified Code(s): J96.01 - Acute respiratory failure with hypoxia Hypertension Qualifiers: Hypertension type: essential hypertension Qualified Code(s): I10 - Essential ( primary) hypertension - Discharge Information Referrals: Geovanni Ochoa MD [Primary Care Provider] - Forms: ED Department Discharge - My Orders Last 24 Hours: My Active Orders 05/14/18 02:17 Cardiac Monitoring [RC] . DIRECTED Sodium Chloride 0.9% [Saline Flush] 10 ml FLUSH ASDIRECTED PRN Peripheral IV Insertion Adult [OM.PC] Stat 05/14/18 02:18 EKG Documentation Completion [RC] STAT Peripheral IV Care [RC] . DIRECTED Chest 1V Frontal [CR] Stat 05/14/18 02:21 Desired Level of Sedation (RASS) [AST] Click To Edit 05/14/18 02:22 Head wo Cont [CT] Stat 05/14/18 02:30 Suh Catheter Insertion [Insert Urinary Catheter] [OM.PC] Q24H Propofol [Diprivan 100 ML] 100 ml IV TITRATE 05/14/18 02:36 Transfuse Fresh Frozen Plasma [COMM] Stat 05/14/18 02:38 UA W/MICROSCOPIC [URIN] Stat 05/14/18 03:27 Rocuronium [Zemuron] 65 mg IVPUSH ONETIME ONE - Assessment/Plan Last 24 Hours: My Active Orders 05/14/18 02:17 Cardiac Monitoring [RC] . DIRECTED Sodium Chloride 0.9% [Saline Flush] 10 ml FLUSH ASDIRECTED PRN Peripheral IV Insertion Adult [OM.PC] Stat 05/14/18 02:18 EKG Documentation Completion [RC] STAT Peripheral IV Care [RC] . DIRECTED Chest 1V Frontal [CR] Stat 05/14/18 02:21 Desired Level of Sedation (RASS) [AST] Click To Edit 05/14/18 02:22 Head wo Cont [CT] Stat 05/14/18 02:30 Suh Catheter Insertion [Insert Urinary Catheter] [OM.PC] Q24H Propofol [Diprivan 100 ML] 100 ml IV TITRATE 05/14/18 02:36 Transfuse Fresh Frozen Plasma [COMM] Stat 05/14/18 02:38 UA W/MICROSCOPIC [URIN] Stat 05/14/18 03:27 Rocuronium [Zemuron] 65 mg IVPUSH ONETIME ONE
[2018-05-14] MEDS ORDERED: Rocuronium 50 MG/5 ML Vial IVPUSH ONE (03:27)
[2018-05-14 03:40] VITALS: BP 146/50
--- NOTE | 2018-05-14 08:33 | CT ---
Head CT Technique: Multiple axial sections through the brain were obtained. Intravenous contrast was not utilized. Comparison: Prior head CT study of 03/13/18. Findings: Large parenchymal hemorrhage is seen with rupture into the ventricular system with ventricular blood being noted down to the fourth ventricle. Significant midline shift is seen to the left side measuring at least 1.6 cm. Low density is noted within the brainstem suspicious for edematous change. Other areas of edema are seen around the hemorrhage. Dilated temporal horns are seen compatible with sub-uncal herniation. Partially visualized nasogastric tube and orogastric tube are seen. Small vessel ischemic demyelination change is noted within the periventricular and subcortical white matter. Bone window settings were reviewed which show no acute calvarial abnormality. Mild mucosal thickening is seen within a hypoplastic right maxillary sinus with mild mucosal thickening seen within the ethmoid sinuses. Impression: 1. Large acute parenchymal hemorrhage with its epicenter on the right side causing shift of the midline to the left side. There is also sub-uncal herniation. Low density seen within the brainstem suggesting edema possibly from the herniation. 2. Intraventricular rupture of blood is seen. 3. Other incidental findings. Diagnostic code #5 Agree with preliminary report issued by [facility] ([facility] preliminary report dictated on 05/05/1918, 3:49 AM Central Time)
--- NOTE | 2018-05-14 08:33 | CR ---
Chest: Frontal view of the chest was obtained. Comparison: Prior chest x-ray of 02/11/18. Heart size appears at the upper limits of normal. Tortuous thoracic aorta is seen. Endotracheal tube is seen with tip lying below the level of the clavicles which is satisfactory in position. Tip of nasogastric tube courses off the inferior edge of the film in satisfactory position. Left axillary and subclavian stent is seen. Pulmonary vessels are slightly increased which are believed to be chronic. Prior vertebroplasty within the lower thoracic spine is noted. Previous lumbar spine surgery is noted. Impression: 1. Satisfactory position of endotracheal tube and nasogastric tube. 2. Other incidental findings as noted above. Diagnostic code #3
== END 2018-05-14 03:45 ==
LOC: JD.ED 02:06
DX: I61.8 Other nontraumatic intracerebral hemorrhage (principal); J96.01 Acute respiratory failure with hypoxia; I13.11 Hypertensive heart and chronic kidney disease without heart failure, with stage 5 chronic kidney disease, or end stage renal disease; E11.22 Type 2 diabetes mellitus with diabetic chronic kidney disease; N18.6 End stage renal disease; J96.21 Acute and chronic respiratory failure with hypoxia; Z99.2 Dependence on renal dialysis; E11.21 Type 2 diabetes mellitus with diabetic nephropathy; Z79.4 Long term (current) use of insulin; Z79.01 Long term (current) use of anticoagulants; Z79.899 Other long term (current) drug therapy; Z91.041 Radiographic dye allergy status; Z88.8 Allergy status to other drugs, medicaments and biological substances
CPT/HCPCS: 31500; 36415; 36430; 51702; 70450; 71045; 80053; 81001; 84484; 85025; 85610; 85730; 86900; 86901; 93005; 96365; 96375; 99291; 99292; G0480; J0330; J3430; J7050; P9017; 93010; J3490